=== PATIENT | female | born 1990 | race Caucasian/White ===

== ENCOUNTER 2016-10-02 19:49 | Inpatient (IN) ==
[2016-10-02] MEDS ORDERED: Metoclopramide 10 MG/2 ML VIAL IVP PRN (20:02)
[2016-10-02] MEDS ORDERED: Naloxone 0.4 MG/ML INJ IVP PRN (20:02)
[2016-10-02] MEDS ORDERED: Ondansetron 4 MG/2 ML VIAL IVP PRN (20:02)
[2016-10-02] MEDS ORDERED: Famotidine 20 MG/2 ML VIAL IVP PRN (20:02)
[2016-10-02 20:39] LABS: Basophils % 0.3 %; Eosinophils # 0.1 K/mcL (0.0-0.6); Eosinophils % 1.3 %; Hematocrit 35.3 % (35.3-44.9); Hemoglobin 11.8 g/dL (11.5-15.4); Immature Granulocytes % 0.6 % (0-4); Lymphocytes # 2.3 K/mcL (0.6-4.6); Lymphocytes % 24.9 %; Mean Corpuscular HGB Conc 33.4 g/dL (31.6-35.5); Mean Corpuscular Hemoglobin 28.6 pg (28.0-33.3); Mean Corpuscular Volume 85.7 fL (83.0-100.0); Mean Platelet Volume 9.1 fL (9.4-12.4); Monocytes # 0.7 K/mcL (0.0-1.3); Monocytes % 7.3 %; Neutrophils # 6.1 K/mcL (1.6-8.9); Platelet Count 211 K/mcL (140-400); Red Blood Count 4.12 M/mcL (3.82-4.97); Red Cell Distribution Width 14.9 % (11.5-14.5); Segmented Neutrophils % 65.6 %
[2016-10-02] MEDS ORDERED: Oxytocin 20 units/ LR 1000 mL 20 UNIT/1,000 ML BAG IVC ONE (22:01)
[2016-10-02] MEDS ORDERED: Oxytocin 20 units/ LR 1000 mL 20 UNIT/1,000 ML BAG IVC SCH (22:04)
[2016-10-02] MEDS: Ringers Solution, Lactated 1,000 ML IVC SCH (22:25)
[2016-10-03] MEDS ORDERED: miSOPROStol 25 MCG TABLET VG SCH
[2016-10-03] MEDS: Ringers Solution, Lactated 1,000 ML IVC SCH ×2 (06:35→14:25)
--- NOTE | 2016-10-03 07:39 | OB/GYN History & Physical ---
Date of Encounter: 10/03/16 Time of Encounter: 07:34 Assessment and Plan (1) 41 weeks gestation of Current visit: Yes Status: Acute Admit for IOL for postdates. Plan for Pitocin. AROM when able. GBS negative. Anticipate . History of Present Illness Chief complaint: Postdates HPI: Ms. Servin is a 26 year old female presenting at 41w5d for IOL due to postdates. She denies complaints today. Good FM. Her has been uncomplicated. Her blood type is B positive. Rubella immune. Serologies and GBS negative. Past Med Surg Social Fam HX - Past Medical History Medical history: no medical history Psychiatric history: no psych history - Past Surgical History Surgical History: no surgical history - Social History Smoking Status: Never smoker Alcohol use: none Drug use: none - Family History Mother Family Member Ethnicity: Non- Living Status: Still Living Hx Family Cardiac Disorders: Yes (HTN) Hx Family Endocrine Disorder: Yes (DM) Obstetrical History - Pregnancies : 1 Medications and Allergies Adult Probiotic 1 cap PO DAILY 10/02/16 [History] Calcium/Magnesium [Calcium with Magnesium Tab] 1 tab PO DAILY 10/02/16 [History] Lansoprazole [Prevacid] 30 mg PO DAILY 10/02/16 [History] Caplet 1 tab PO DAILY 10/02/16 [History] Allergies Sulfa (Sulfonamide Antibiotics) Allergy (Verified 10/02/16 20:28) See Comments Review of System OB All systems PM: reviewed and no additional remarkable complaints except as stated Exam - Constitutional Constitutional: well developed, well nourished, no acute distress - HEENT HEENT: Mucus Membranes Moist - Lungs Respiratory exam: CTAB - Cardiovascular Cardiovascular exam: RRR, +S1, +S2 - Abdomen Abdomen: Present: gravid, non tender - Extremities Extremities exam: normal inspection - Vulva Vulva: bilateral: normal - Vagina Vagina: Present: normal moisture - Uterus Uterus exam: Present: normal size (EFW 9lbs) - Anus/Rectum Anus/Rectum: Present: normal perianal skin Results Result Diagrams: 10/02/16 20:28 Abnormal lab results RDW 14.9 % (11.5-14.5) H 10/02/16 20:28 MPV 9.1 fL (9.4-12.4) L 10/02/16 20:28 All other labs normal. - VTE Reasons for not Prescribing Prophylaxis: Treatment not Indicated - Low risk for VTE
--- NOTE | 2016-10-03 08:03 | OB Labor Progress Note ---
Date of Encounter: 10/03/16 Time of Encounter: 08:01 Labor Progress Note - Subjective Subjective: Patient in bed resting denies any pain at this time. Discussed POC with patient. Patient denies any questions or concerns. - Cervix Cervix: 3.5/80/-2 - Heart Tones Heart Tones: 1135 bpm moderate variability +15x15 accels no decels noted. Cat 1 tracing. - [place]: 2.5-3 min apart - Interventions Interventions: SVE, AROM moderate amount of meconium stained fluid. IUPC placed without difficulty. Patient tolerated well. - Plan Plan: Continue labor management start pitocin if needed for labor augmentation.
[2016-10-03] MEDS ORDERED: *HR* Nalbuphine 20 MG/ML AMPUL IVP PRN (10:36)
--- NOTE | 2016-10-03 12:59 | OB Labor Progress Note ---
Date of Encounter: 10/03/16 Time of Encounter: 12:57 Labor Progress Note - Subjective Subjective: Patient breathing through contractions. Pitocin at 10 milliunits. - Cervix Cervix: 5/90/-1 - Heart Tones Heart Tones: 135 bpm moderate variability +15x15 accels no decels noted. Cat. 1 tracing. - [place]: 2-3 min apart - Interventions Interventions: SVE, Patient on birthing ball at this time. - Plan Plan: Continue labor management. Patient may have epidural for pain management if desires.
[2016-10-03] MEDS ORDERED: Ondansetron 4 MG/2 ML VIAL IVP PRN (14:21)
[2016-10-03] MEDS ORDERED: Ringers Solution, Lactated 500 ML IVC ONE (14:21)
[2016-10-03] MEDS ORDERED: EPHEDrine 50 MG/ML VIAL IVP PRN (14:21)
[2016-10-03] MEDS ORDERED: Epidural Premix (fent/bupiv) 110 ML EP ONE (14:23)
[2016-10-03] MEDS ORDERED: Epidural Premix (fent/bupiv) 110 ML EP SCH (14:30)
--- NOTE | 2016-10-03 15:05 | Anesthesia Evaluation PreOp ---
Date of Encounter: 10/03/16 Time of Encounter: 15:03 - Past History Planned Operation: TARIQ Cardiac History: Denies any Significant Hx Pulmonary History: Denies Any Significant HX MINE SUPERVISOR History: Denies Any Significant HX Other Medical History: Denies Any Significant HX Anesthesia History: No Prior Anesthetic Complications : Yes Alcohol Use: none Drug use: none Medications and Allergies Adult Probiotic 1 cap PO DAILY 10/02/16 [History] Calcium/Magnesium [Calcium with Magnesium Tab] 1 tab PO DAILY 10/02/16 [History] Lansoprazole [Prevacid] 30 mg PO DAILY 10/02/16 [History] Caplet 1 tab PO DAILY 10/02/16 [History] Allergies Sulfa (Sulfonamide Antibiotics) Allergy (Verified 10/02/16 20:28) See Comments - Meds/Allergy Pre-op Review Medications Reviewed: Yes Allergies Reviewed: Yes Beta Blockers on Current Med List: No Anesthesia Results - Labs 10/02/16 20:28 Anesthesia Exam Height: 1.63 Weight: 124.5kg NPO (# of Hours): 6 Pain Scale: 10 Pain Scale Used: Numeric (1 - 10) - HEENT Pupil (Motor): Pupils equal Mallampati: II Teeth: Normal Oral Opening: Greater than 3 - MINE SUPERVISOR LOC: Oriented MINE SUPERVISOR Motor: Normal RUE, Normal LUE, Normal RLE, Normal LLE, Normal Face MINE SUPERVISOR Sensory: Normal: RUE, LUE, RLE, LLE, Face - Cardiac Rhythm: Regular Murmur: None JVD: No Carotid Bruit: No - Pulmonary Breath Sounds: bilateral Clear Respiratory Effort: Symmetrical Anesthesia Assess/Plan ASA Score: 3 (bmi 47) Modified Sumner Scale for Level of Consciousness: Cooperative, oriented, and tranquil Anesthetic Plan: General (plan b), Regional (plan a) Autologous Blood: Yes Monitoring Plan: Standard Monitors
--- NOTE | 2016-10-03 15:08 | Anesthesia Procedures ---
Date of Encounter: 10/03/16 Time of Encounter: 15:06 Procedures: Anesthesia - Epidural/Spinal Patient ID/Chart reviewed: Yes Patient examined: Yes OB Eval: Gestational age: 41 OB Eval: : 1 OB Eval: Hx Para: 0 OB Eval: Dilated at (cm): 5 OB Eval: Contractions: Non-stressed pattern Consent Obtained: Yes Supplemental Oxygen: None/Room Air Site Prep: Aseptic Technique, Sterile prep and drape, Povidone-Iodine 1% Patient position: upright Local Anesthetic: Lidocaine 1% Amount of Local Anesthetic used: 3 Touhy Needle Gauge: 18 Touhy Needle Depth (cm): 10 Catheter Depth at Skin (cm): 16 Test Dose (1.5% Lido + Epi): Volume given (mls): 5 Test Dose Result: Negative Loading Dose: Other: 10mls of epidural pharm bag solution Loading Dose Administered: Thru Catheter Infusion Med: 0.125% Bupivacaine w/ 2 mcg/ml Fentanyl Infusion Rate (mls/hr): [address]: Tegaderm, Tape Interspace Used: L3-L4 Loss of Resistance (LUCILLE): Yes Blood: No CSF: No Paresthesia: No Procedure: pt tolerated procedure well. no complications. vss. fhr stable. difficult epidural placement.
[2016-10-03] MEDS ORDERED: Chloroprocaine/PF 20 ML VIAL INFILT ONE (15:17)
[2016-10-03] MEDS ORDERED: Bupivacaine-MPF 0.25% 10 ML VIAL ONE (17:06)
[2016-10-03] MEDS ORDERED: *HR* FentaNYL (PF) 100 MCG/2 ML VIAL ONE (17:06)
--- NOTE | 2016-10-03 18:16 | OB Labor Progress Note ---
Date of Encounter: 10/03/16 Time of Encounter: 18:14 Labor Progress Note - Subjective Subjective: Patient is resting and comfortable with epidural in place. Patient reports mild pressure. POC disccussed with patient. patient denies any questions or concerns. - Cervix Cervix: 8/100/0 - Heart Tones Heart Tones: 135 bpm moderate variability. No accels or decels noted at this time - [place]: 2-3 min apart - Interventions Interventions: SVE - Plan Plan: Continue labor management Report given to both Dr. Chong and MANJINDER Garcia
[2016-10-03] MEDS ORDERED: Lidocaine 1% 20 ML MDV ONE (20:28)
--- NOTE | 2016-10-03 21:18 | OB/GYN Procedure Note ---
Delivery - Delivery Date: 10/03/16 Provider: Radha Loo Intrapartum events: meconium Delivery induction: oxytocin Delivery augmentation: rupture of membranes Delivery monitor: external FHT, internal uterine Anesthesia: epidural Estimated Blood Loss: 300 - Repair Episiotomy: midline Laceration Description: Perineal - 2nd Degree, Labial - Complications Delivery complications: meconium - Disposition Mom disposition: stable in LDR disposition: stable in LDR - Comments Comments: CNM called to room when pt . Pt pushed effectively to deliver head. No nuchal cord noted. Shoulder dystocia encountered and resolved after 4- seconds with McRobert's and suprapubic pressure. Dr. Chong cut an episiotomy and assisted with delivery of shoulders. Male infant weighing 4200g with apgars 8 at one minute and 9 at five minutes. After a 90 second delay the cord was clamped and cut and the placenta delivered spontaneous and intact. A second degree perineal laceration was repaired with 3-0 Vicryl and a left labial laceration was repaired with 4-0 Vicryl. A right labial laceration was hemostatic and was not repaired. Mother and baby stable in [facility] care following delivery.
[2016-10-03] MEDS ORDERED: Benzocaine/Menthol 56 GM AEROSOL SPRAY TP PRN (23:14)
[2016-10-03] MEDS ORDERED: Acetaminophen 325 MG TABLET PO PRN (23:14)
[2016-10-03] MEDS ORDERED: Ibuprofen 600 MG TABLET PO PRN (23:14)
[2016-10-03] MEDS ORDERED: Oxytocin 20 units/ LR 1000 mL 20 UNIT/1,000 ML BAG IV SCH (23:14)
[2016-10-03] MEDS ORDERED: Measles/Mumps/Rubella Vacc 0.5 ML VIAL SQ PRN (23:14)
[2016-10-03] MEDS ORDERED: Oxytocin 20 units/ LR 1000 mL 20 UNIT/1,000 ML BAG IVC ONE (23:14)
[2016-10-03] MEDS ORDERED: Lanolin 28 GM TUBE TP PRN (23:14)
[2016-10-04 03:29] LABS: Basophils % 0.1 %; Eosinophils % 0.1 %; Hematocrit 32.6 % (35.3-44.9); Hemoglobin 10.8 g/dL (11.5-15.4); Immature Granulocytes % 0.6 % (0-4); Lymphocytes # 1.7 K/mcL (0.6-4.6); Lymphocytes % 10.2 %; Mean Corpuscular HGB Conc 33.1 g/dL (31.6-35.5); Mean Corpuscular Hemoglobin 28.7 pg (28.0-33.3); Mean Corpuscular Volume 86.7 fL (83.0-100.0); Mean Platelet Volume 8.8 fL (9.4-12.4); Monocytes # 1.2 K/mcL (0.0-1.3); Monocytes % 7.3 %; Neutrophils # 13.5 K/mcL (1.6-8.9); Platelet Count 204 K/mcL (140-400); Red Blood Count 3.76 M/mcL (3.82-4.97); Red Cell Distribution Width 15.1 % (11.5-14.5); Segmented Neutrophils % 81.7 %
[2016-10-04] MEDS ORDERED: Prenatal Vit/FA 1 EACH TABLET PO SCH (09:00)
[2016-10-04] MEDS: *HR* HYDROcodone/Acet 5/325 mg TABLET PO PRN ×2 (09:34→18:49)
--- NOTE | 2016-10-04 11:58 | OB/GYN Progress Note ---
Date of Encounter: 10/04/16 Time of Encounter: 11:57 - Assessment and Plan (1) Status post vaginal delivery Current Visit: Yes Status: Acute Ambulation encouraged, wants to go home so ok for discharge, infant ok to be discharged Subjective - Subjective Patient reports: appetite normal, voiding normally, pain well controlled, ambulating normally [place]: doing well (lochia light) Objective - Latest Vital Signs Latest vital signs: Vital Signs Temp Pulse Resp BP Pulse Ox 10/04/16 07:30 98.1 F 80 16 114/68 10/04/16 03:25 98.7 F 89 14 114/72 97 10/04/16 01:17 98.1 F 77 16 101/53 97 10/04/16 00:30 98.1 F 61 18 123/77 97 10/03/16 23:33 98.5 F 81 16 118/69 98 Intake and Output 10/03/16 10/04/16 10/04/16 23:59 07:59 15:59 Intake Total 1500 / 1500 900 / 900 1240 / 1240 Output Total 650 / 650 600 / 600 1800 / 1800 Balance 850 / 850 300 / 300 -560 / -560 Intake: Oral 900 / 900 1240 / 1240 Intake, Autotransfusion 1500 / 1500 Amount Output: Urine 600 / 600 1800 / 1800 Estimated Blood Loss 300 / 300 Catheter 350 / 350 Other: Meal Breakfast Percent of Meal Consumed 100% Weight 118.5 kg 120 kg Patient Weight 10/04/16 23:59 Weight 120 kg - Exam Lungs: bilateral: normal Chest: Normal S1, Normal S2 Extremities: Present: normal Abdomen: Present: normal appearance, soft Uterus: Present: normal - Labs Labs: Laboratory Results - last 24 hr 10/04/16 03:20 WBC 16.5 H D RBC 3.76 L Hgb 10.8 L Hct 32.6 L MCV 86.7 MCH 28.7 MCHC 33.1 RDW 15.1 H Plt Count 204 MPV 8.8 L Immature Gran % 0.6 Seg Neutrophils % 81.7 Lymphocytes % 10.2 Monocytes % 7.3 Eosinophils % 0.1 Basophils % 0.1 Neutrophils # 13.5 H Lymphocytes # 1.7 Monocytes # 1.2 Eosinophils # 0.0 Basophils # 0.0
[2016-10-04] MEDS ORDERED: Lanolin 7 G OINT...G. TP PRN (19:44)
[2016-10-04 21:33] VITALS: BP 124/73
--- NOTE | 2016-10-13 16:01 | Discharge Summary ---
Date of Encounter: 10/04/16 Time of Encounter: 09:00 - Discharge Diagnosis (1) Status post vaginal delivery Priority: Primary Status: Resolved - Discharge Medications Home Medications: Calcium/Magnesium [Calcium with Magnesium Tab] 1 tab PO DAILY 10/02/16 [History] L. Acidophilus/Pectin, [place] [Acidophilus Probiotic Capsule] 1 cap PO DAILY [History] Lansoprazole [Prevacid] 30 mg PO DAILY 10/02/16 [History] Pnv95/Ferrous Fumarate/FA [ Caplet] 1 tab PO DAILY 10/02/16 [History] Loratadine [Claritin] 10 mg PO DAILY 10/06/16 [History] Acetaminophen/Butalbital/Caffe [Fioricet] 1 each PO Q6HR PRN #30 tablet [Rx] Ibuprofen [Motrin] 600 mg PO Q6HR PRN #30 tab 10/09/16 [Rx] Allergies/Adverse Reactions: Allergies Sulfa (Sulfonamide Antibiotics) Allergy (Verified 10/06/16 22:39) See Comments PATIENT STATES IT WAS A CHILDHOOD ALLERGY AND SHE IS UNSURE OF REACTION- Data Procedures and tests throughout hospitalization: Laboratory Tests 10/02/16 10/04/16 20:28 03:20 WBC 9.4 16.5 H D RBC 4.12 3.76 L Hgb 11.8 10.8 L Hct 35.3 32.6 L MCV 85.7 86.7 MCH 28.6 28.7 MCHC 33.4 33.1 RDW 14.9 H 15.1 H Plt Count 211 204 MPV 9.1 L 8.8 L Immature Gran % 0.6 0.6 Seg Neutrophils % 65.6 81.7 Lymphocytes % 24.9 10.2 Monocytes % 7.3 7.3 Eosinophils % 1.3 0.1 Basophils % 0.3 0.1 Neutrophils # 6.1 13.5 H Lymphocytes # 2.3 1.7 Monocytes # 0.7 1.2 Eosinophils # 0.1 0.0 Basophils # 0.0 0.0 Date of admission: 10/02/16 19:49 Primary care physician: PCP NO Consults: 10/03/16 23:14 Consult to Photographer News [CONS] Routine Comment: Vaginal delivery, consult needed - Patient Status Disposition: Home, Self-Care Condition: Good - Discharge Instructions Follow Up With: NO,PCP [Primary Care Provider] - Hospital Course 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 Time Attestation: Total time spent providing and/or coordinating discharge services: Exam - Constitutional Vitals: Temp Pulse Resp BP Pulse Ox 98.2 F 76 14 124/73 97 10/04/16 19:40 10/04/16 19:40 10/04/16 19:40 10/04/16 19:40 10/04/16 19:40 General appearance IM: A&O X 3 - Respiratory Respiratory exam: Present: CTAB - Cardiovascular Cardiovascular exam IM: Present: RRR - GI/Abdominal GI/Abdominal exam IM: normal bowel sounds - Uterus Position: 1 Finger Below Umbilicus - Extremities Exam Extremities exam IM: Present: normal inspection - VTE Reasons for not Prescribing Prophylaxis: Treatment not Indicated - Low risk for VTE
== END 2016-10-04 21:34 | disposition home or self-care (01) | DRG 775 ==
LOC: 1NENULAB 19:49 → 1NENUOBS 10-03 09:23 → 1NENULAB 10-03 09:49 → 1NENUOBS 10-03 23:14
PROVIDERS: ADMIT Registered Nurse; ATTEND Registered Nurse

== ENCOUNTER 2016-10-06 16:21 | Inpatient (IN) ==
[2016-10-06] MEDS ORDERED: 0.9 % Sodium Chloride 1,000 ML IVC ONE (16:49)
[2016-10-06] MEDS ORDERED: Acetaminophen 325 MG TABLET PO ONE (16:49)
[2016-10-06] MEDS ORDERED: Dexamethasone 4 MG/ML VIAL IVP ONE (16:55)
--- NOTE | 2016-10-06 17:06 | Emergency Department Note ---
Disposition Clinical Impression: Bacterial meningitis, unspecified Disposition: Admitted As Inpatient Condition: Fair Referrals: Jackelin Quevedo CNP [Primary Care Provider] - Forms: ED Satisfaction Letter Time of Disposition: 22:58 Fever HPI - General Chief Complaint: ED Fever Stated Complaint: fever s/p epidural Thursday Time Seen by Provider: 10/06/16 16:43 Source: patient Limitations: no limitations Nursing Notes Reviewed: Yes Vital Signs Reviewed: Yes - History of Present Illness HPI Narrative: 26-year-old female who is 3 days from a spontaneous vaginal delivery presents to the emergency department for evaluation of headache, neck stiffness and fever. Patient states that she had an epidural performed during her delivery which she states was a difficult epidural and they had to attempt multiple times before obtaining access. Patient states that she developed a headache the following day which developed neck stiffness. Patient checked her temperature today and noted it was 101.3F. Patient states that she was concerned and side confirmed emergent department for evaluation. Exam is remarkable for a young female resting in bed in no acute distress. Patient has her eyes closed during the exam secondary to photophobia. Patient has subjective pain to neck flexion. Patient doesn't have meningeal signs at this time however, her history does suggest that. Heart is tachycardic but regular. Her abdomen is soft and nontender. She is awake and oriented. Labs, CT and LP to be performed. Pt Subjective Complaint: fever, other (Headache, neck stiffness) Onset (ago): day(s) (3) Maximum Temperature Reported: 101.3 F Temperature Source: oral Context: recent procedure/surgery Associated symptoms: Reports: chills, headache, stiff neck Improves with: nothing Worsens with: nothing Treatments prior to arrival fever: none - Related Data Home Medications Medication Instructions Recorded Confirmed Calcium/Magnesium [Calcium with 1 tab PO DAILY 10/02/16 10/06/16 Magnesium Tab] L. Acidophilus/Pectin, Lat[place] 1 cap PO DAILY 10/02/16 10/06/16 [Acidophilus Probiotic Capsule] Lansoprazole [Prevacid] 30 mg PO DAILY 10/02/16 10/06/16 Pnv95/Ferrous Fumarate/FA 1 tab PO DAILY 10/02/16 10/06/16 [ Caplet] Loratadine [Claritin] 10 mg PO DAILY 10/06/16 10/06/16 Allergies Allergy/AdvReac Type Severity Reaction Status Date / Time Sulfa (Sulfonamide Allergy See Verified 10/06/16 22:39 Antibiotics) Comments All systems ED: reviewed and negative except as stated. Constitutional: Reports: fever, chills Cardiovascular: Denies: chest pain, palpitations, dyspnea on exertion Respiratory: Denies: cough, dyspnea, wheezes Gastrointestinal: Denies: abdominal pain, nausea, vomiting Genitourinary: Denies: dysuria Musculoskeletal: Reports: back pain, neck pain Integumentary: Denies: rash Neurological: Reports: headache. Denies: weakness Fever PMH - Past Medical History Medical history: Reports: no medical history Surgical history: Reports: no surgical history Psychiatric history: Reports: no psych history BARREL FINISHER history: Reports: no BARREL FINISHER history : 1 Para: 1 A: 0 - Social History Smoking Status: Never smoker Alcohol use: Reports: none Drug use: Reports: none Physical Exam - General Limitations: no limitations General appearance: alert, in no apparent distress - Head Head exam: atraumatic, normocephalic, normal inspection - Eye Eye exam: Present: normal appearance, PERRL, EOMI - Neck Neck exam: Present: normal inspection, trachea midline, tenderness (Tenderness to palpation of the midline cervical spine) - Chest Chest inspection: Present: normal inspection, symmetric chest wall rise - Respiratory Respiratory exam: Present: normal lung sounds bilaterally - Cardiovascular Cardiovascular exam: Present: normal rhythm, tachycardia, normal heart sounds - Abdominal Exam Abdominal exam: Present: soft, Non-Tender. Absent: tenderness, distention, guarding, rebound, rigidity - Neurological Exam Neurological exam: Present: alert, oriented X3 - Skin Skin exam: Present: warm, dry, intact, normal color Course - Reevaluation(s) Reevaluation #1: Discussed case with anesthesia. We are unable to obtain CSF despite multiple attempts. This seen and evaluated the patient in the emergency department and were able to obtain CSF. It has been sent to lab for analysis. Rocephin and Decadron has been given. Awaiting CSF results prior to admission. Time: 21:18 Reevaluation #2: Discussed case with hospitalist service. He has accepted the patient on the condition that neurology would be able to see the patient tomorrow. I discussed the case with Dr. Huitron of neurology who is in agreement with the plan of care and recommends every 2 neuro checks and he is to be called with any change in the patient's mental status or her neuro examination. Antibiotics have been given and the patient is stable at the time of disposition. Time: 22:58 Vital Signs Temperature 100.1 F H 10/06/16 16:28 Pulse Rate 135 10/06/16 16:28 Respiratory Rate 18 10/06/16 16:28 Blood Pressure 138/88 10/06/16 16:28 O2 Sat by Pulse Oximetry 98 10/06/16 16:28 Temperature 100.1 F H 10/06/16 16:28 Pulse Rate 113 10/06/16 19:00 Respiratory Rate 13 10/06/16 19:00 Blood Pressure 148/86 10/06/16 19:00 O2 Sat by Pulse Oximetry 99 10/06/16 19:00 Oxygen Delivery Oxygen Delivery Room Air Procedures - Lumbar Puncture Consent Obtained: written consent Time Out Performed: Yes Patient Position: upright Skin Prep: Povidone-Iodine 1% Local Anesthetic: lidocaine 1% Amount of anesthesia used (mL): 10 Spinal Needle Gauge: 20G Interspace Used: L3-L4 Complications: unable to obtain CSF Fever - Medical Records Medical records reviewed: Yes I reviewed the patient's medical records. - Lab Data Lab results reviewed: Yes I reviewed the patient's lab results. Result diagrams: 10/06/16 17:15 10/06/16 17:15 Lab Results 10/06/16 10/06/16 10/06/16 Range/Units 17:15 17:15 17:15 WBC 16.8 H (4.3-11.1) K/mcL RBC 3.93 (3.82-4.97) M/mcL Hgb 11.5 (11.5-15.4) g/dL Hct 34.8 L (35.3-44.9) % MCV 88.5 (83.0-100.0) fL MCH 29.3 (28.0-33.3) pg MCHC 33.0 (31.6-35.5) g/dL RDW 15.2 H (11.5-14.5) % Plt Count 215 (140-400) K/mcL MPV 8.8 L (9.4-12.4) fL Immature Gran % 1.9 (0-4) % Seg Neutrophils % 90.6 % Lymphocytes % 4.3 % Monocytes % 3.0 % Eosinophils % 0.1 % Basophils % 0.1 % Neutrophils # 15.3 H (1.6-8.9) K/mcL Lymphocytes # 0.7 (0.6-4.6) K/mcL Monocytes # 0.5 (0.0-1.3) K/mcL Eosinophils # 0.0 (0.0-0.6) K/mcL Basophils # 0.0 (0.0-0.2) K/mcL Sodium 137 (136-145) mEq/L Potassium 3.3 L (3.5-4.5) mEq/L Chloride 103 (98-109) mEq/L Carbon Dioxide 20 (19-29) mEq/L BUN 6 L (7-20) mg/dL Creatinine 0.71 (0.57-1.11) mg/dL Est GFR ( Amer) > 60 (> 60) Est GFR (Non-Af Amer) > 60 (> 60) BUN/Creatinine Ratio 8 (6-26) Glucose 111 H (70-99) mg/dL Calculated Osmolality 282 (280-300) Lactic Acid 0.8 (0.5-2.2) mmol/L Calcium 8.8 (8.6-10.8) mg/dL CSF Volume mL CSF Appearance (Clear) CSF Color (Colorless) CSF RBC (0.000 - 0.002) M/mcL CSF Tot Nucleated Cells (0-5) TNC/mcL CSF Seg Neutrophils % CSF Band Neutrophils % % CSF Lymphocytes % % CSF Monocytes % % CSF Basophils % % CSF Glucose (40-70) mg/dL CSF Xanth Comm (Not Observe) CSF Total Protein (15-45) mg/dL 10/06/16 10/06/16 10/06/16 Range/Units 21:06 21:06 21:19 WBC (4.3-11.1) K/mcL RBC (3.82-4.97) M/mcL Hgb (11.5-15.4) g/dL Hct (35.3-44.9) % MCV (83.0-100.0) fL MCH (28.0-33.3) pg MCHC (31.6-35.5) g/dL RDW (11.5-14.5) % Plt Count (140-400) K/mcL MPV (9.4-12.4) fL Immature Gran % (0-4) % Seg Neutrophils % % Lymphocytes % % Monocytes % % Eosinophils % % Basophils % % Neutrophils # (1.6-8.9) K/mcL Lymphocytes # (0.6-4.6) K/mcL Monocytes # (0.0-1.3) K/mcL Eosinophils # (0.0-0.6) K/mcL Basophils # (0.0-0.2) K/mcL Sodium (136-145) mEq/L Potassium (3.5-4.5) mEq/L Chloride (98-109) mEq/L Carbon Dioxide (19-29) mEq/L BUN (7-20) mg/dL Creatinine (0.57-1.11) mg/dL Est GFR ( Amer) (> 60) Est GFR (Non-Af Amer) (> 60) BUN/Creatinine Ratio (6-26) Glucose (70-99) mg/dL Calculated Osmolality (280-300) Lactic Acid 0.7 (0.5-2.2) mmol/L Calcium (8.6-10.8) mg/dL CSF Volume 7.0 mL CSF Appearance Bloody (Clear) CSF Color Red (Colorless) CSF RBC 0.051 H (0.000 - 0.002) M/mcL CSF Tot Nucleated Cells 82 H* (0-5) TNC/mcL CSF Seg Neutrophils 83.0 % CSF Band Neutrophils % 7.0 % CSF Lymphocytes % 7.0 % CSF Monocytes % 2.0 % CSF Basophils % 1.0 % CSF Glucose 101 H (40-70) mg/dL CSF Xanth Comm Not Observed (Not Observe) CSF Total Protein 151 H (15-45) mg/dL - Radiology Data Radiology results reviewed: Yes I reviewed the patient's radiology results.
[2016-10-06 17:25] LABS: Basophils % 0.1 %; Eosinophils % 0.1 %; Hematocrit 34.8 % (35.3-44.9); Hemoglobin 11.5 g/dL (11.5-15.4); Immature Granulocytes % 1.9 % (0-4); Lymphocytes # 0.7 K/mcL (0.6-4.6); Lymphocytes % 4.3 %; Mean Corpuscular Hemoglobin 29.3 pg (28.0-33.3); Mean Corpuscular Volume 88.5 fL (83.0-100.0); Mean Platelet Volume 8.8 fL (9.4-12.4); Monocytes # 0.5 K/mcL (0.0-1.3); Neutrophils # 15.3 K/mcL (1.6-8.9); Platelet Count 215 K/mcL (140-400); Red Blood Count 3.93 M/mcL (3.82-4.97); Red Cell Distribution Width 15.2 % (11.5-14.5); Segmented Neutrophils % 90.6 %
[2016-10-06 17:38] LABS: BUN/Creatinine Ratio 8 (6-26); Blood Urea Nitrogen 6 mg/dL (7-20); Calcium 8.8 mg/dL (8.6-10.8); Carbon Dioxide 20 mEq/L (19-29); Chloride 103 mEq/L (98-109); Glucose 111 mg/dL (70-99); Osmolality,Calculated 282 (280-300); Potassium 3.3 mEq/L (3.5-4.5); Sodium 137 mEq/L (136-145); eGFR For African Americans > 60 (> 60); eGFR For Non-African Americans > 60 (> 60)
--- NOTE | 2016-10-06 17:45 | Emergency Department Note ---
START Narrative - START START: I examined this patient and my medical decision-making was reviewed with the VICE PRESIDENT OF ADVERTISING/PA/Advanced Practice Nurse/Resident Physician. I agree with the documented findings, disposition and treatment plan as described except to the extent set forth below. ED attending note: Patient seen with emergency medicine resident Dr. Galloway. We independently evaluated the patient. We independently had [id number] contact with the patient. Please see a copy of his note for details of the history and physical, evaluation, management and disposition of this emergency Department patient. Briefly: A 26-year-old [facility] female had an epidural to giving to her child at [facility] was reported. As well as photophobia headache and neck pain and fever. Site appears to be free and clear from infection, swelling, redness or bleeding. GCS 15 neurologically nonfocal. Patient getting labs head CT and then lumbar puncture for CSF samples were excluded the possibility of meningitis. We have provided 45 minutes of critical care service this patient, disposition pending.
[2016-10-06] MEDS ORDERED: Lidocaine -MPF 1% 2 ML VIAL ONE (20:18)
--- NOTE | 2016-10-06 21:30 | Anesthesia Procedures ---
Date of Encounter: 10/06/16 Time of Encounter: 21:17 Procedures: Anesthesia - Lumbar Puncture Patient ID/Chart reviewed: Yes Patient examined: Yes Any signs of Infection or bacteremia: Yes Patient on Blood thinners: No Consent Obtained: written consent Time Out Performed: Yes Patient Position: upright Site Prep: Povidone-Iodine 1% Local Anesthetic Used: Lidocaine 1% Amount of anesthesia used (mls): 3 Spinal Needle Gauge: 20G Interspace Used: L3-L4 Fluid Initially Obtained: bloody Complications: none Additional Comments:: Patient had multiple prior attempts at LP prior to this one (possibly why bloody CSF present). No complications.
[2016-10-06 21:45] LABS: Red Blood Cell,CSF 0.051 M/mcL
[2016-10-06 21:46] LABS: Glucose,CSF 101 mg/dL (40-70); Total Protein,CSF 151 mg/dL (15-45)
[2016-10-06 22:43] LABS: Appearance,CSF Bloody (Clear)
[2016-10-06] MEDS ORDERED: Vancomycin 1,750 MG in D5% in Water 250 ML IVPB ONE (22:47)
[2016-10-07] MEDS ORDERED: Acetaminophen 325 MG TABLET PO PRN (00:56)
[2016-10-07] MEDS ORDERED: Naloxone 0.4 MG/ML INJ IVP PRN (00:56)
--- NOTE | 2016-10-07 01:28 | Internal Med History&Physical ---
Date of Encounter: 10/07/16 Time of Encounter: : Assessment and Plan (1) Bacterial meningitis, unspecified Current visit: Yes Status: Acute 1. I suspect this is likely due to skin justino (Staph/Strep) given recent epidural placement (3-4 days ago) for her /delivery. 2. Will treat with Vancomycin IV (Pharmacy dosing) and Rocephin 2000 mg IV Q12H. 3. Will also treat with IV Acyclovir and follow CSF HSV PCR results. I have very low suspicion for HSV meningitis. 4. Consult neurology for guidance. 5. Follow CSF cultures and adjust antibiotics accordingly. (2) Status post vaginal delivery Current visit: No Status: Acute 1. Pt is breast feeding. 2. I asked nursing to provide her breast pump to maintain adequate breast milk production. 3. Baby not present -- at home with relatives. (3) DVT prophylaxis Current visit: Yes Status: Acute 1. Heparin SQ. Internal Medicine - H&P: HPI Chief complaint: headache, neck pain, fever Admitted From: Emergency Dept Plans for Post Hospital Care: Home History of present illness: Ms. Servin is a 26 year old female who presents with a 24-hour history of headache, neck ache, and fever to 101 degrees Fahrenheit. Patient just delivered her baby 3-1/2 days ago here at [facility]. She had an epidural placement for analgesia during delivery. According to records, this was a difficult epidural placement. After an uneventful delivery, patient and her baby were discharged to home. She has been at home caring for her baby and breast- feeding her baby. However, over the last 24-48 hours her above symptoms developed. She therefore presented to the ER for evaluation. In the ER, she underwent workup including lumbar puncture. She had evidence of leukocytosis on her CBC. Furthermore, her CSF fluid analysis revealed elevated neutrophil count with left shift, elevated protein, and slightly elevated glucose. Gram stain, however, reveals no organisms. Patient was treated with Vancomycin and Rocephin and subsequently admitted to the hospitalist service. Upon my assessment of the patient, she is lying in bed comfortably. She does complain of headache and neck ache, however. In particular, she does have exacerbation of symptoms by touching her chin to her chest. She does not appear very ill or toxic, however. She and her reiterated the above history. They deny any ill contacts or foreign travel prior to her delivery. Prior to delivery, she was feeling well other than related issues. She denies any history of oral or genital herpes. After a long discussion with patient and her and reviewing the old records, I have very low suspicion that this is meningococcal disease. I suspect this is likely secondary to skin bacteria (staph or strep) as she had a difficult to place epidural 3-4 days ago. Past Med Surg Social Fam HX - Past Medical History Source: patient, old records reviewed Medical history: no medical history Psychiatric history: no psych history - Past Surgical History Surgical History: no surgical history - Social History Smoking Status: Never smoker Smokeless Tobacco Status: No Alcohol use: none Drug use: none Current living situation: Home, With Family Activity Level: Independent ambulation Recent Out of Country Travel Within the Last 8 Weeks: No - Family History Mother Family Member Ethnicity: Non- Living Status: Still Living Hx Family Cardiac Disorders: Yes (HTN) Hx Family Endocrine Disorder: Yes (DM) Father Living Status: Still Living Hx Family Neurologic Disorders: No Internal Medicine - H&P: Meds Calcium/Magnesium [Calcium with Magnesium Tab] 1 tab PO DAILY 10/02/16 [History] L. Acidophilus/Pectin, [place] [Acidophilus Probiotic Capsule] 1 cap PO DAILY [History] Lansoprazole [Prevacid] 30 mg PO DAILY 10/02/16 [History] Pnv95/Ferrous Fumarate/FA [ Caplet] 1 tab PO DAILY 10/02/16 [History] Loratadine [Claritin] 10 mg PO DAILY 10/06/16 [History] Allergies Sulfa (Sulfonamide Antibiotics) Allergy (Verified 10/06/16 22:39) See Comments PATIENT STATES IT WAS A CHILDHOOD ALLERGY AND SHE IS UNSURE OF REACTION- - Constitutional Constitutional: fever(s), no chills, no night sweats - EENT Eyes: no blurry vision, no change in vision Ears: no ear pain, no tinnitus Nose, mouth and throat: no nasal congestion, no sinus pressure, no sore throat - Cardiovascular Cardiovascular ROS IM: no chest pain, no dyspnea, no dyspnea on exertion - Respiratory Respiratory: no cough, no dyspnea, no dyspnea on exertion - Gastrointestinal Gastrointestinal: no abdominal pain, no diarrhea, no hematemesis, no hematochezia, no melena, no vomiting - Genitourinary Genitourinary: no dysuria, no flank pain, no hematuria - Musculoskeletal Musculoskeletal ROS IM: back pain, no arthralgias, no joint swelling - Integumentary Integumentary IM: no rash, no jaundice - Neurological Neurological ROS: headache(s), other (+neck/back pain), no dizziness, no focal weakness, no weakness - Psychiatric Psychiatric: no anxiety, no depression - Endocrine Endocrine IM: no cold intolerance, no heat intolerance - Hematologic/Lymphatic Hematologic/Lymphatic: no easy bruising, no lymphadenopathy - Allergic/Immunologic Allergic/Immunologic: no wheezing, no GI upset with certain foods - Constitutional Vitals: Temp Pulse Resp BP Pulse Ox 98.7 F 96 17 134/79 96 10/07/16 00:02 10/07/16 00:02 10/07/16 00:02 10/07/16 00:02 10/07/16 00:02 General appearance: Present: cooperative, mild distress, A&O X 3, pleasant, answers questions appropriately - Head Head exam: Present: atraumatic, normal inspection - Expanded Head Exam Head exam expanded: Absent: abrasion, contusion - Eye Eye exam: Present: EOMI, normal appearance, PERRL. Absent: scleral icterus Pupils: Present: normal accommodation - ENT ENT exam: Present: mucous membranes moist, normal exam, normal oropharynx - Neck Neck exam general surgery: Present: normal inspection, tenderness, nuchal rigidity. Absent: lymphadenopathy - Respiratory Respiratory exam: Present: CTAB. Absent: chest wall tenderness, rales, respiratory distress, rhonchi, wheezes - Cardiovascular Cardiovascular exam: Present: RRR, +S1, +S2. Absent: diastolic murmur, systolic murmur - GI/Abdominal GI/Abdominal exam: Present: normal bowel sounds, soft. Absent: hepatomegaly, mass, splenomegaly, tenderness - Extremities Exam Extremities exam: Present: full ROM, normal capillary refill, warm. Absent: calf tenderness, joint swelling, mottling, tenderness - Back Exam Back exam: Present: paraspinal tenderness (mild pain upon palpation of cervical and thoracic spine). Absent: CVA tenderness (L), CVA tenderness (R) - Neurological Exam Neurological exam: Present: alert, CN II-XII intact, oriented X3, no focal deficits Additional comments: + nuchal rigidity (mild); + Brudzinski sign - Psychiatric Psychiatric exam: Present: normal affect, normal mood - Skin Skin exam: Present: dry, warm. Absent: petechiae, rash, vesicles Internal Med - H&P Results - Labs CBC & Chem 7: 10/06/16 17:15 10/06/16 17:15
[2016-10-07] MEDS: Ibuprofen 400 MG TABLET PO PRN ×4 (01:50→18:27)
[2016-10-07] MEDS: 0.9 % Sodium Chloride w KCl 20 MEQ/1,000 ML MLS IVC SCH ×3 (01:50→17:27)
[2016-10-07] MEDS ORDERED: Vancomycin 1,750 MG in D5% in Water 250 ML IVPB SCH (02:00)
[2016-10-07] MEDS ORDERED: Vancomycin 1,750 MG in D5% in Water 500 ML IVPB ONE (02:00)
[2016-10-07 04:32] LABS: Basophils % 0.1 %; Hematocrit 31.7 % (35.3-44.9); Hemoglobin 10.4 g/dL (11.5-15.4); Immature Granulocytes % 1.5 % (0-4); Lymphocytes # 0.7 K/mcL (0.6-4.6); Lymphocytes % 5.8 %; Mean Corpuscular HGB Conc 32.8 g/dL (31.6-35.5); Mean Corpuscular Volume 88.3 fL (83.0-100.0); Mean Platelet Volume 8.8 fL (9.4-12.4); Monocytes # 0.4 K/mcL (0.0-1.3); Monocytes % 3.2 %; Neutrophils # 10.9 K/mcL (1.6-8.9); Platelet Count 213 K/mcL (140-400); Red Blood Count 3.59 M/mcL (3.82-4.97); Red Cell Distribution Width 15.3 % (11.5-14.5); Segmented Neutrophils % 89.4 %
[2016-10-07 04:50] LABS: BUN/Creatinine Ratio 6 (6-26); Calcium 8.7 mg/dL (8.6-10.8); Carbon Dioxide 21 mEq/L (19-29); Chloride 107 mEq/L (98-109); Glucose 130 mg/dL (70-99); Magnesium 1.5 mg/dL (1.6-2.6); Osmolality,Calculated 285 (280-300); Potassium 3.6 mEq/L (3.5-4.5); Sodium 138 mEq/L (136-145); eGFR For African Americans > 60 (> 60); eGFR For Non-African Americans > 60 (> 60)
[2016-10-07 04:51] LABS: Blood Urea Nitrogen 4 mg/dL (7-20)
[2016-10-07] MEDS: *HR* Heparin 5,000 UNIT/ML VIAL SQ SCH ×2 (05:50→17:30)
--- NOTE | 2016-10-07 07:36 | Neurology - Consult Note ---
Date of Encounter: 10/07/16 Time of Encounter: 07:32 Assessment and Plan (1) Bacterial meningitis, unspecified Current Visit: Yes Status: Acute I agree that we are likely dealing with a bacterial meningitis. The organisms were likely introduced as a result of the difficult epidural injection. In regards she is currently awake and alert she does not appear toxic or encephalopathic. She does have some nuchal tenderness. We will continue to treat with IV vancomycin and Rocephin per protocol and await the final CSF cultures. Further conditions will be made pending final cultures. Would recommend a consultation with ID if available. History of Present Illness HPI: Ms. Servin is a 26 year old female who was seen for neurologic evaluation secondary to what seems to be bacterial meningitis. She is just recently delivered a baby about 3-1/2 4 days ago. [facility]. She did have an epidural to assist with the procedure and the procedure was difficult. Apparently multiple attempts were required in order to finally complete the procedure. However she was ultimately discharged home with her insulin. Over the last 2 days associated begin to develop headache in the occipital nuchal region as well as frontally, also felt some neck pain. However she has been awake and alert she has not been lethargic or confused at all. She was seen here at the ED and a lumbar puncture was performed revealing 80% segmented cells and protein elevated at 150. Considering the fact that she does have symptoms consistent with meningitis along with lumbar puncture results, it is certainly reasonable to suspect bacterial meningitis. The Gram stain however revealed no organisms. However I agree with internal medicine that multiple attempts may have led to the introduction of skin justino into the subarachnoid space. She is currently awake and alert she still has some nuchal tenderness however is in no acute distress. She does have some photophobia, which was to be expected. She denies any hearing loss. Past Med Surg Social Fam HX - Past Medical History Medical history: no medical history Psychiatric history: no psych history - Past Surgical History Surgical History: no surgical history - Social History Smoking Status: Never smoker Smokeless Tobacco Status: No Alcohol use: none Drug use: none - Family History Mother Family Member Ethnicity: Non- Living Status: Still Living Hx Family Cardiac Disorders: Yes (HTN) Hx Family Endocrine Disorder: Yes (DM) Father Living Status: Still Living Hx Family Neurologic Disorders: No Medications and Allergies Calcium/Magnesium [Calcium with Magnesium Tab] 1 tab PO DAILY 10/02/16 [History] L. Acidophilus/Pectin, [place] [Acidophilus Probiotic Capsule] 1 cap PO DAILY [History] Lansoprazole [Prevacid] 30 mg PO DAILY 10/02/16 [History] Pnv95/Ferrous Fumarate/FA [ Caplet] 1 tab PO DAILY 10/02/16 [History] Loratadine [Claritin] 10 mg PO DAILY 10/06/16 [History] Allergies Sulfa (Sulfonamide Antibiotics) Allergy (Verified 10/06/16 22:39) See Comments PATIENT STATES IT WAS A CHILDHOOD ALLERGY AND SHE IS UNSURE OF REACTION- All Systems: A 10-system review of systems was performed and is negative for pertinent findings except as documented above in the HPI. Review of Systems: 10 point review of systems is consistent with a history of present illness and otherwise negative. Physical Examination - Vital Signs Vital Signs: Initial Vital Signs Temp Pulse Resp BP Pulse Ox 100.1 F H 135 18 138/88 98 10/06/16 16:28 10/06/16 16:28 10/06/16 16:28 10/06/16 16:28 10/06/16 16:28 - Neurologic Detailed motor examination: full strength in all major muscle groups Motor examination - right side: 5/5: deltoids, biceps, triceps, wrist flexion, wrist extension, chairman emeritus, hip flexors, tibialis Anterior, quadriceps, toe extension (EHL), plantarflexion Motor examination - left side: 5/5: deltoids, biceps, triceps, wrist flexion, wrist extension, hip flexors, chairman emeritus, quadriceps, tibialis Anterior, toe extension (EHL), plantarflexion Mental Status Examination: awake, alert, oriented to person, oriented to place, oriented to time, follows commands appropriately, answers questions appropriately, no agnosia, no aphasia, no aproxia Cranial nerve examination: PERRL, EOMI, visual lee intact, corneal reflexes brisk symmetrically, sensory to face intact, mastication intact, no facial asymmetry is present, no dysarthria, hearing is intact symmetrically, soft palate elevates bilaterally upon phonation, gag reflex intact, flexes SCM and trapezius muscles symmetrically with full power, tongue protrudes midline, no atrophy or facial fasiculations present Cerebellar examination: no dysmetria, performs finger to nose and heel to saeed symmetrically without ataxia, no gait ataxia, no truncal ataxia, no difficulty with rapid alternating movements Results - Laboratory Findings CBC and BMP: 10/07/16 04:14 10/07/16 04:14 Abnormal lab findings: Abnormal lab results WBC 12.2 K/mcL (4.3-11.1) H 10/07/16 04:14 RBC 3.59 M/mcL (3.82-4.97) L 10/07/16 04:14 Hgb 10.4 g/dL (11.5-15.4) L 10/07/16 04:14 Hct 31.7 % (35.3-44.9) L 10/07/16 04:14 RDW 15.3 % (11.5-14.5) H 10/07/16 04:14 MPV 8.8 fL (9.4-12.4) L 10/07/16 04:14 Neutrophils # 10.9 K/mcL (1.6-8.9) H 10/07/16 04:14 BUN 4 mg/dL (7-20) L 10/07/16 04:14 Glucose 130 mg/dL (70-99) H 10/07/16 04:14 Magnesium 1.5 mg/dL (1.6-2.6) L 10/07/16 04:14 CSF RBC 0.051 M/mcL (0.000-0.002) H 10/06/16 21:06 CSF Tot Nucleated Cells 82 TNC/mcL (0-5) H* 10/06/16 21:06 CSF Glucose 101 mg/dL (40-70) H 10/06/16 21:06 CSF Total Protein 151 mg/dL (15-45) H 10/06/16 21:06 Consult Discharge Plan - Plan Referrals: Jackelin Quevedo, CPC [Primary Care Provider] -
[2016-10-07] MEDS: Lactobacillus 1 EACH CAP.SPRINK PO SCH (08:24)
[2016-10-07] MEDS: Prenatal Vit/FA 1 EACH TABLET PO SCH (08:24)
[2016-10-07] MEDS: Acyclovir 1,000 MG in D5% in Water 250 ML IVPB SCH ×2 (08:25→17:29)
[2016-10-07] MEDS: CALCIUM PO SCH (08:38)
[2016-10-07] MEDS: Loratadine 10 MG TABLET PO SCH (08:38)
[2016-10-07] MEDS: MAGNESIUM PO SCH (08:38)
[2016-10-07] MEDS: Vancomycin 1,750 MG in D5% in Water 500 ML IVPB SCH ×2 (09:46→22:32)
[2016-10-07 10:37] LABS: Bilirubin,Urine Negative (Negative); Blood,Urine Moderate (Negative); Clarity,Urine Clear (Clear); Color,Urine Yellow (Yellow); Glucose,Urine (UA) Normal (Normal); Ketones,Urine Negative (Negative); Leukocyte Esterase,Urine Small (Negative); Nitrite,Urine Negative (Negative); PH,Urine 7.5 pH Units (5.0-8.0); Protein,Urine Negative (Neg-Trace); Urobilinogen,Urine Normal (Normal)
[2016-10-07 10:40] LABS: Bacteria,Urine None Seen per hpf (None-Few); Hyaline Casts,Urine None Seen per lpf (None-Few); Squamous Epithelial Cell,Urine Many per lpf (None-Few); WBC,Urine 15-30 per hpf (0-3)
--- NOTE | 2016-10-07 10:55 | Internal Med Progress Note ---
Date of Encounter: 10/07/16 Time of Encounter: 10:00 - Subjective Interval history: Patient seen and examined. On examination, patient initially laying on her side with her eyes closed. She awakened easily to voice and states her headache is improving as long as she lays flat. She is alert and oriented 3 and is tearful at that time given that she cannot be with her baby at this point. - Constitutional Vitals: Temp Pulse Resp BP Pulse Ox 97.7 F 68 15 134/82 98 10/07/16 06:38 10/07/16 06:38 10/07/16 06:38 10/07/16 06:38 10/07/16 06:38 General appearance: Present: cooperative, A&O X 3, pleasant, no acute distress, answers questions appropriately - Head Head exam: Present: atraumatic, normocephalic - Eye Eye exam: Present: PERRL, conjuntiva pink, sclera anicteric Pupils: Present: PERRL - Neck Neck exam general surgery: Present: supple, trachea midline. Absent: lymphadenopathy - Respiratory Respiratory exam: Present: CTAB. Absent: accessory muscle use, rales, respiratory distress, rhonchi, wheezes - Cardiovascular Cardiovascular exam: Present: RRR, +S1, +S2. Absent: diastolic murmur, gallop, rubs, systolic murmur - GI/Abdominal GI/Abdominal exam: Present: normal bowel sounds, soft, no peritoneal signs. Absent: distended, tenderness - Extremities Exam Extremities exam: Present: warm, radial pulses palpable and symetrical. Absent : calf tenderness, cyanotic, pedal edema - Neurological Exam Neurological exam: Present: alert, CN II-XII intact, oriented X3, no focal deficits, strengths equal and symetr throughout. Absent: pronater drift, facial droop, speech deficit - Expanded Neurological Exam Neurological exam expanded: Present: protecting the airway Patient oriented to: Present: person, place, time Speech: Present: fluid speech Cranial Nerves: EOM's intact PM: Normal Neuro motor strength exam: LUE: 5, RUE: 5, LLE: 5, RLE: 5 Coma Scale Eye Opening: Spontaneous Coma Scale Motor Response: Obeys Commands Coma Scale Verbal Response: Oriented Coma Scale Total: 15 - Skin Skin exam: Present: dry, intact, pallor, warm Internal Medicine: Result - Labs CBC & Chem 7: 10/07/16 04:14 10/07/16 04:14 Labs: Short CBC 10/07/16 Range/Units 04:14 WBC 12.2 H (4.3-11.1) K/mcL Hgb 10.4 L (11.5-15.4) g/dL Hct 31.7 L (35.3-44.9) % Plt Count 213 (140-400) K/mcL Neutrophils # 10.9 H (1.6-8.9) K/mcL BMP 10/07/16 04:14 Sodium 138 Potassium 3.6 Chloride 107 Carbon Dioxide 21 BUN 4 L Creatinine 0.62 Glucose 130 H Calcium 8.7 Urine 10/07/16 Range/Units 10:33 Urine Color Yellow (Yellow) Urine Clarity Clear (Clear) Urine pH 7.5 (5.0-8.0) pH Units Ur Specific [place] 1.020 (1.010-1.025) Urine Protein Negative (Neg-Trace) mg/dL Urine Glucose (UA) Normal (Normal) mg/dL Consult Discharge Plan - Plan Referrals: Jackelin Quevedo, VP [employer] [Primary Care Provider] -
--- NOTE | 2016-10-07 12:07 | Event Note ---
Date of Encounter: 10/07/16 Time of Encounter: 09:00 Patient seen and examined. On examination, patient initially laying on her side with her eyes closed. She awakened easily to voice and states her headache is improving as long as she lays flat. She is alert and oriented 3 and is tearful at that time given that she cannot be with her baby at this point. Leukocytosis trending down. We will continue vancomycin, ceftriaxone, acyclovir with pending cultures. Head CT negative. Vital signs stable. Hemodynamically stable. No signs of sepsis or shock. Patient is alert and oriented 3. She states her headache is improving. She has mild nuchal rigidity. I spoke to sky line yarder Dr. Johnson as the patient and her had several questions about her baby. Per Dr. Johnson, patient needs to pump and dump her breast milk as intense cannot receive ceftriaxone until they are over 1 month old. He also states that she should not have contact with baby yet. The baby has an appointment with his sky line yarder at [facility] here today. We will prophylactically treat her with IM ceftriaxone. Mild hypokalemia has resolved. Abnormal urinalysis noted , urine culture pending. Preliminary Gram stain of CSF negative. CSF negative for cryptococcal antigen. Blood cultures, remaining CSF cultures, and HSV cultures all still pending so will continue current antibiotic treatment and monitor closely. ITS Impressions Head CT 10/06/16 16:54 IMPRESSION: No acute intracranial abnormality. D/ / Milo Pro MD / Milo Pro MD Interpreting Provider: Milo Pro MD
[2016-10-08] MEDS: Acyclovir 1,000 MG in D5% in Water 250 ML IVPB SCH ×4 (00:07→23:29)
[2016-10-08] MEDS: Ibuprofen 400 MG TABLET PO PRN ×2 (01:03→06:54)
[2016-10-08] MEDS: 0.9 % Sodium Chloride w KCl 20 MEQ/1,000 ML MLS IVC SCH ×3 (02:06→17:47)
[2016-10-08 04:33] LABS: Basophils % 0.3 %; Eosinophils # 0.1 K/mcL (0.0-0.6); Eosinophils % 1.5 %; Hemoglobin 10.4 g/dL (11.5-15.4); Immature Granulocytes % 1.2 % (0-4); Lymphocytes # 1.6 K/mcL (0.6-4.6); Lymphocytes % 26.8 %; Mean Corpuscular HGB Conc 32.5 g/dL (31.6-35.5); Mean Corpuscular Hemoglobin 29.3 pg (28.0-33.3); Mean Corpuscular Volume 90.1 fL (83.0-100.0); Mean Platelet Volume 9.2 fL (9.4-12.4); Monocytes # 0.5 K/mcL (0.0-1.3); Monocytes % 8.3 %; Neutrophils # 3.7 K/mcL (1.6-8.9); Platelet Count 199 K/mcL (140-400); Red Blood Count 3.55 M/mcL (3.82-4.97); Red Cell Distribution Width 15.7 % (11.5-14.5); Segmented Neutrophils % 61.9 %
[2016-10-08 04:49] LABS: BUN/Creatinine Ratio 9 (6-26); Blood Urea Nitrogen 6 mg/dL (7-20); Calcium 8.2 mg/dL (8.6-10.8); Carbon Dioxide 21 mEq/L (19-29); Chloride 109 mEq/L (98-109); Glucose 93 mg/dL (70-99); Magnesium 1.4 mg/dL (1.6-2.6); Osmolality,Calculated 287 (280-300); Potassium 3.5 mEq/L (3.5-4.5); Sodium 140 mEq/L (136-145); eGFR For African Americans > 60 (> 60); eGFR For Non-African Americans > 60 (> 60)
[2016-10-08] MEDS: *HR* Heparin 5,000 UNIT/ML VIAL SQ SCH ×2 (06:46→18:20)
--- NOTE | 2016-10-08 08:11 | Neurology Progress Note ---
Date of Encounter: 10/08/16 Time of Encounter: 08:08 Assessment and Plan (1) Bacterial meningitis, unspecified Current Visit: Yes Status: Acute (2) Post lumbar puncture headache Current Visit: Yes Status: Acute As stated earlier and index of suspicion for bacterial meningitis is decreased. However I still recommend maintaining the current antibiotic regimen until the 48 hour cultures return. I think that we might be able to help with the post-LP headaches by trying to hydrate her and often caffeine either in her IVs or by the way of caffeinated tools such as butalbital with caffeine may be helpful in treating his headache. If the positional component of the headache persists then ultimately we may require an opinion from anesthesia for blood patch. Further recommendations will be made pending the result of the 48 hour culture. Also recommend returning to droplet precautions. Subjective Interval history: The chart was reviewed with the patient was seen and examined. She was sleeping upon my entering the room. She was easily aroused to voice. She still has complaints of occipital nuchal tenderness and headache particularly when sitting upright. However she alters his her opinion about how uncomfortable she is. First she mentioned that she felt the pain was 8 out of 10 and then later she changed it to 4 out of 10. Also I did revisit the lab data. The 24-hour culture was negative for any organisms were grown in the initial Gram stain did not reveal any organisms. Therefore my index of suspicion for bacterial meningitis is decreasing. In retrospect the protein count in the CSF is generally greater than 200 and bacterial meningitis, also expect that the CSF glucose with been significantly decreased. In this case the CSF glucose serum glucose ratio was about 1-1. She is also on airborne precautions and only droplet precautions are really necessary in this case. Objective - Constitutional Vitals: Temp Pulse Resp BP Pulse Ox 98.3 F 65 17 123/73 98 10/08/16 07:16 10/08/16 07:16 10/08/16 07:16 10/08/16 07:16 10/08/16 07:16 - Neurological Exam Motor Examination: Present: full strength in all major muscle groups Motor examination - right side: 5/5: deltoids, biceps, triceps, wrist flexion, wrist extension, associate java developer, hip flexors, tibialis Anterior, quadriceps, toe extension (EHL), plantarflexion Motor examination - left side: 5/5: deltoids, biceps, triceps, wrist flexion, wrist extension, hip flexors, associate java developer, quadriceps, tibialis Anterior, toe extension (EHL), plantarflexion Reflex and gait examination: other (She is able to flex the chin down to the chest today. He does have some discomfort but no nuchal rigidity.) Mental Status Examination: Present: awake, alert, oriented to person, oriented to place, oriented to time, follows commands appropriately, answers questions appropriately, no agnosia, no aphasia, no aproxia Cranial nerve examination: Present: PERRL, EOMI, visual lee intact, corneal reflexes brisk symmetrically, sensory to face intact, mastication intact, no facial asymmetry is present, no dysarthria, hearing is intact symmetrically, soft palate elevates bilaterally upon phonation, gag reflex intact, flexes SCM and trapezius muscles symmetrically with full power, tongue protrudes midline, no atrophy or facial fasiculations present Cerebellar examination: Present: no dysmetria, performs finger to nose and heel to saeed symmetrically without ataxia, no gait ataxia, no truncal ataxia, no difficulty with rapid alternating movements Results - Laboratory Findings CBC and BMP: 10/08/16 04:11 10/08/16 04:11 Abnormal lab findings: Abnormal lab results RBC 3.55 M/mcL (3.82-4.97) L 10/08/16 04:11 Hgb 10.4 g/dL (11.5-15.4) L 10/08/16 04:11 Hct 32.0 % (35.3-44.9) L 10/08/16 04:11 RDW 15.7 % (11.5-14.5) H 10/08/16 04:11 MPV 9.2 fL (9.4-12.4) L 10/08/16 04:11 BUN 6 mg/dL (7-20) L 10/08/16 04:11 Calcium 8.2 mg/dL (8.6-10.8) L 10/08/16 04:11 Magnesium 1.4 mg/dL (1.6-2.6) L 10/08/16 04:11 Urine Blood Moderate (Negative) H 10/07/16 10:33 Ur Leukocyte Esterase Small (Negative) H 10/07/16 10:33 Urine Microscopic RBC 3-5 per hpf (0-3) H 10/07/16 10:33 Urine Microscopic WBC 15-30 per hpf (0-3) H 10/07/16 10:33 Ur Squamous Epith Cells Many per lpf (None-Few) H 10/07/16 10:33 Ur Culture Indicated? YES (NO) A 10/07/16 10:33 CSF RBC 0.051 M/mcL (0.000-0.002) H 10/06/16 21:06 CSF Tot Nucleated Cells 82 TNC/mcL (0-5) H* 10/06/16 21:06 CSF Glucose 101 mg/dL (40-70) H 10/06/16 21:06 CSF Total Protein 151 mg/dL (15-45) H 10/06/16 21:06 Consult Discharge Plan - Plan Referrals: Jackelin Quevedo, [employer] [Primary Care Provider] -
[2016-10-08] MEDS ORDERED: Ondansetron 4 MG/2 ML VIAL IVP PRN (08:56)
[2016-10-08] MEDS: Prenatal Vit/FA 1 EACH TABLET PO SCH (09:03)
[2016-10-08] MEDS: Lactobacillus 1 EACH CAP.SPRINK PO SCH (09:03)
[2016-10-08] MEDS: MAGNESIUM PO SCH (09:03)
[2016-10-08] MEDS: CALCIUM PO SCH (09:03)
[2016-10-08] MEDS: Loratadine 10 MG TABLET PO SCH (09:03)
--- NOTE | 2016-10-08 09:58 | Internal Med Progress Note ---
Date of Encounter: 10/08/16 Time of Encounter: 09:30 - Assessment and plan (1) Bacterial meningitis, unspecified Current Visit: Yes Status: Acute Assessment and plan: Suspicion for bacterial meningitis at this point is low however will continue current regimen of vancomycin, ceftriaxone, and acyclovir until tomorrow in the 48 hour cultures are obtained. Leukocytosis resolved. Patient remains alert and oriented 3. Vital signs remained stable. No signs of sepsis. Patient complaining of mild headache that is worsened when she sits up consistent with spinal headache status post lumbar puncture procedure. We will treat with butalbital with caffeine and monitor. Head CT negative. Thus far, blood cultures negative, CSF Gram stain negative thus far, CSF cultures negative thus far as well. Abnormal urinalysis noted, urine culture pending. ITS Impressions Head CT 10/06/16 16:54 IMPRESSION: No acute intracranial abnormality. D/ / Milo Pro MD / Milo Pro MD Interpreting Provider: Milo Pro MD (2) DVT prophylaxis Current Visit: Yes Status: Acute Assessment and plan: Subcutaneous heparin (3) Post lumbar puncture headache Current Visit: Yes Status: Acute Assessment and plan: See prior note for bacterial meningitis (4) 41 weeks gestation of Current Visit: No Status: Acute Assessment and plan: Patient is continuing to pump and dump breastmilk. She was encouraged to pump every 2 hours around the clock given that her child was 9 lbs. 4 oz. She is still producing approximately 1 ounce each side every 3 hours. (5) Status post vaginal delivery Current Visit: No Status: Acute - Subjective Interval history: Patient seen and examined. On examination, patient is sitting upright in bed currently pumping. She states she continues to have a mild headache but is otherwise doing well. She is alert and oriented 3 and states she ate a little bit of her breakfast but became nauseated. - Constitutional Vitals: Temp Pulse Resp BP Pulse Ox 98.3 F 65 17 123/73 98 10/08/16 07:16 10/08/16 07:16 10/08/16 07:16 10/08/16 07:16 10/08/16 09:00 General appearance: Present: cooperative, A&O X 3, pleasant, no acute distress, answers questions appropriately - Head Head exam: Present: atraumatic, normocephalic - Eye Eye exam: Present: PERRL, conjuntiva pink, sclera anicteric Pupils: Present: PERRL - Neck Neck exam general surgery: Present: supple, trachea midline. Absent: lymphadenopathy - Respiratory Respiratory exam: Present: CTAB. Absent: accessory muscle use, rales, respiratory distress, rhonchi, wheezes - Cardiovascular Cardiovascular exam: Present: RRR, +S1, +S2. Absent: diastolic murmur, gallop, rubs, systolic murmur - GI/Abdominal GI/Abdominal exam: Present: normal bowel sounds, soft, no peritoneal signs. Absent: distended, tenderness - Extremities Exam Extremities exam: Present: warm, radial pulses palpable and symetrical. Absent : calf tenderness, cyanotic, pedal edema - Neurological Exam Neurological exam: Present: alert, CN II-XII intact, oriented X3, no focal deficits, strengths equal and symetr throughout. Absent: pronater drift, facial droop, speech deficit - Skin Skin exam: Present: dry, intact, normal color, warm Internal Medicine: Result - Labs CBC & Chem 7: 10/08/16 04:11 10/08/16 04:11 Labs: Short CBC 10/08/16 Range/Units 04:11 WBC 6.0 D (4.3-11.1) K/mcL Hgb 10.4 L (11.5-15.4) g/dL Hct 32.0 L (35.3-44.9) % Plt Count 199 (140-400) K/mcL Neutrophils # 3.7 (1.6-8.9) K/mcL BMP 10/08/16 04:11 Sodium 140 Potassium 3.5 Chloride 109 Carbon Dioxide 21 BUN 6 L Creatinine 0.65 Glucose 93 Calcium 8.2 L Consult Discharge Plan - Plan Referrals: Jackelin Quevedo, BODY MAKE UP ARTIST [Primary Care Provider] -
[2016-10-08] MEDS: Vancomycin 1,750 MG in D5% in Water 500 ML IVPB SCH (10:50)
[2016-10-08] MEDS: Acetaminophen/Butalbital/CaffeineTABLET PO PRN ×3 (10:54→23:29)
[2016-10-08] MEDS: Vancomycin 1,500 MG in D5% in Water 250 ML IVPB SCH (19:59)
[2016-10-09] MEDS: 0.9 % Sodium Chloride w KCl 20 MEQ/1,000 ML MLS IVC SCH ×2 (01:15→09:16)
[2016-10-09] MEDS: Vancomycin 1,500 MG in D5% in Water 250 ML IVPB SCH (05:49)
[2016-10-09] MEDS: *HR* Heparin 5,000 UNIT/ML VIAL SQ SCH (05:49)
[2016-10-09] MEDS: Acetaminophen/Butalbital/CaffeineTABLET PO PRN ×2 (05:58→10:41)
[2016-10-09 07:07] VITALS: BP 117/72
[2016-10-09] MEDS: Acyclovir 1,000 MG in D5% in Water 250 ML IVPB SCH (09:15)
[2016-10-09] MEDS: Loratadine 10 MG TABLET PO SCH (09:15)
[2016-10-09] MEDS: Lactobacillus 1 EACH CAP.SPRINK PO SCH (09:15)
[2016-10-09] MEDS: CALCIUM PO SCH (09:16)
[2016-10-09] MEDS: MAGNESIUM PO SCH (09:16)
[2016-10-09] MEDS: Prenatal Vit/FA 1 EACH TABLET PO SCH (09:17)
--- NOTE | 2016-10-09 09:27 | Discharge Summary ---
Date of Encounter: 10/09/16 Time of Encounter: 08:45 - Discharge Diagnosis (1) Bacterial meningitis, unspecified Priority: Primary Status: Ruled-out Comments: CSF Gram stain negative. Crypto antigen negative. CSF culture negative. Blood cultures negative. Urine culture negative. Patient has been afebrile throughout this admission. No signs of acute infectious processes noted. 10/08/16 Suspicion for bacterial meningitis at this point is low however will continue current regimen of vancomycin, ceftriaxone, and acyclovir until tomorrow in the 48 hour cultures are obtained. Leukocytosis resolved. Patient remains alert and oriented 3. Vital signs remained stable. No signs of sepsis. Patient complaining of mild headache that is worsened when she sits up consistent with spinal headache status post lumbar puncture procedure. We will treat with butalbital with caffeine and monitor. Head CT negative. Thus far, blood cultures negative, CSF Gram stain negative thus far, CSF cultures negative thus far as well. Abnormal urinalysis noted, urine culture pending. ITS Impressions Head CT 10/06/16 16:54 IMPRESSION: No acute intracranial abnormality. D/ / Milo Pro MD / Milo Pro MD Interpreting Provider: Milo Pro MD (2) DVT prophylaxis Priority: Primary Status: Acute Comments: Subcutaneous heparin while admitted (3) Post lumbar puncture headache Priority: Primary Status: Acute Comments: Responded well to Fioricet. Patient was offered a blood patch but refused. (4) 41 weeks gestation of Priority: Primary Status: Acute (5) Status post vaginal delivery Priority: Primary Status: Acute - Discharge Medications Prescriptions: Acetaminophen/Butalbital/Caffe [Fioricet] 1 each PO Q6HR PRN #30 tablet PRN Reason: Headache Ibuprofen [Motrin] 600 mg PO Q6HR PRN #30 tab PRN Reason: Pain Home Medications: Calcium/Magnesium [Calcium with Magnesium Tab] 1 tab PO DAILY 10/02/16 [History] L. Acidophilus/Pectin, [place]ke[place] [Acidophilus Probiotic Capsule] 1 cap PO DAILY [History] Lansoprazole [Prevacid] 30 mg PO DAILY 10/02/16 [History] Pnv95/Ferrous Fumarate/FA [ Caplet] 1 tab PO DAILY 10/02/16 [History] Loratadine [Claritin] 10 mg PO DAILY 10/06/16 [History] Acetaminophen/Butalbital/Caffe [Fioricet] 1 each PO Q6HR PRN #30 tablet [Rx] Ibuprofen [Motrin] 600 mg PO Q6HR PRN #30 tab 10/09/16 [Rx] Allergies/Adverse Reactions: Allergies Sulfa (Sulfonamide Antibiotics) Allergy (Verified 10/06/16 22:39) See Comments PATIENT STATES IT WAS A CHILDHOOD ALLERGY AND SHE IS UNSURE OF REACTION- Date of admission: 10/07/16 15:47 Primary care physician: Jackelin Quevedo CNP Consults: 10/07/16 16:34 Consult to Security Advisor [CONS] Routine Reason for SW Consult: Discharge planning Discharging clinician: Deanne Mata Anticipated date of discharge: 10/09/16 - Patient Status Disposition: Home, Self-Care Condition: Good Functional capacity at discharge: independent ambulation Overall status at discharge: patient is progressing back to baseline - Discharge Instructions Follow Up With: Jackelin Quevedo CNP [Primary Care Provider] - 10/13/16 4:00 pm Additional Instructions: Follow-up with primary care provider as scheduled - Diet and Activity Activity: increase activity as tolerated Diet: regular diet (with increased fluid intake) Hospital course: Ms. Servin is a 26 year old female with no past medical history other than vaginal delivery to her first child 3 days prior to presentation. She presented to the emergency department chief complaint 24 hour history of headache, neck ache, and fever up to 101 home. Patient had just delivered her baby approximately 3-1/2 days prior to presentation. Baby was delivered at [facility]. Patient had an epidural placement for analgesia during delivery and according to records this was a difficult epidural placement. Delivery was then reported as uneventful and he should and her baby were discharged home. Patient stating she started to develop headache, neck pain, and fever and presented to the emergency department. Lumbar puncture completed in the emergency department and was again noted to be a difficult procedure. CSF initially revealed elevated neutrophil count with left shift, elevated protein, and slightly elevated glucose. The patient was then started on vancomycin, ceftriaxone, and acyclovir and admitted to the hospitalist service for further evaluation and management. Patient was treated for bacterial meningitis during this admission. Head CT negative. Throughout this admission, patient remained alert and oriented 3, afebrile, vital signs remained stable. Patient's chief complaint during this admission was a headache that was alleviated with Fioricet and ibuprofen. She was offered several times to have a spinal patch as the likely cause of her pain is spinal headache however her and her declined. Leukocytosis resolved on day 2 of her 3 day admission. Patient did not exhibit any signs of sepsis during this admission. Blood cultures negative. CSF Gram stain negative. CSF cryptococcal antigen negative. CSF culture negative. Urinalysis abnormal however urine culture negative. No definitive causation of the patient's low-grade fever at home was identified during this admission and bacterial meningitis, urinary tract infection were ruled out. She did not exhibit signs of mastitis and she was able to pump breast milk throughout this admission without difficulty. I spoke to our on- call pediatricians during this admission (Kassie Johnson and Adán) regarding breast-feeding and the medications the patient was receiving. She pumped and dumped throughout this admission and I spoke to Dr. Anali Mccain, arcade technician, prior to discharge and she states that the antibiotics patient received while admitted would be negligible in the breastmilk and the patient was safe to resume breast-feeding upon discharge. Regarding her headache, again the main recommendation was for a blood patch but the patient and the refused. According to Dr. Mccain, Fioricet is safe and the benefits outweigh the risks and close outpatient follow-up recommended. The only laboratory value that was not present at time of discharge was the body fluid testing for HSV which is a send out test and would not be available for another 1-2 days after discharge. Likelihood of HSV in the patient and is very low, they state that they have never had any mouth sores or any other sores and had only 1 sexual partner being each other. Recommended close outpatient follow-up for HSV results. She was discharged home in stable condition with close outpatient follow-up recommended. ITS Impressions Head CT 10/06/16 16:54 IMPRESSION: No acute intracranial abnormality. D/ / Milo Pro MD / Milo Pro MD Interpreting Provider: Milo Pro MD - Time Spent with Patient Total time spent providing and/or coordinating discharge services: - Constitutional Vitals: Temp Pulse Resp BP Pulse Ox 98.0 F 59 17 117/72 98 10/09/16 07:05 10/09/16 07:05 10/09/16 07:05 10/09/16 07:05 10/09/16 07:05 General appearance: Present: cooperative, A&O X 3, pleasant, no acute distress, answers questions appropriately - Head Head exam: Present: atraumatic, normocephalic - Eye Eye exam: Present: PERRL, conjuntiva pink, sclera anicteric Pupils: Present: PERRL - Neck Neck exam general surgery: Present: supple, trachea midline. Absent: lymphadenopathy - Respiratory Respiratory exam: Present: CTAB. Absent: accessory muscle use, rales, respiratory distress, rhonchi, wheezes - Cardiovascular Cardiovascular exam: Present: RRR, +S1, +S2. Absent: diastolic murmur, gallop, rubs, systolic murmur - GI/Abdominal GI/Abdominal exam: Present: normal bowel sounds, soft, no peritoneal signs. Absent: distended, tenderness - Extremities Exam Extremities exam: Present: warm, radial pulses palpable and symetrical. Absent : calf tenderness, cyanotic, pedal edema - Neurological Exam Neurological exam: Present: alert, CN II-XII intact, normal gait, oriented X3, no focal deficits, strengths equal and symetr throughout. Absent: pronater drift, facial droop, speech deficit - Skin Skin exam: Present: dry, intact, normal color, warm
[2016-10-09] MEDS ORDERED: Aminoglycoside Consult 1 EACH MC ONE (10:47)
[2016-10-09 15:47] LABS: HSV Source CSF
--- NOTE | 2016-10-16 13:35 | Anesthesia Progress Note ---
Date of Encounter: 10/16/16 Time of Encounter: 13:30 Anesthesia Note - Note Note: 10/16/16 13:29 Patient received epidural during her delivery 10-03. Developed spinal headache upon discharge. Discussed withpatient today that she was difficult epidural attemp and would not do a blood patch. Patient ambulating and denies photophobia and nuchal rigidity. Reassured patient that headache will eventually subside. Recommend continue rest, fluids, caffeine intake, and NSAIDs. Patient agrees. Questions answered.
== END 2016-10-09 10:48 | disposition home or self-care (01) | DRG 776 ==
LOC: EMEROO 16:21 → 3BNU 16:21
PROVIDERS: ADMIT Hospitalist; ATTEND Nurse Practitioner Family